=== PATIENT | female | born 1945 | race Caucasian/White ===

== ENCOUNTER 2022-09-02 22:29 | Inpatient (IN) | payer OTHER ==
[2022-09-02] MEDS ORDERED: HYDROmorphone HCL CARPU-JECT 1 MG/1 ML DISP.SYRIN IVPB ONE (23:06)
[2022-09-02] MEDS ORDERED: HYDROmorphone HCL/PF 1 MG/ML VIAL ONE (23:06)
[2022-09-02 23:10] LABS: HEMATOCRIT 35.5 % (32.4-45.2); HEMOGLOBIN 12.7 G/dL (10.7-15.3); MCH 34.6 pg (25.7-33.7); MCHC 35.8 g/dl (32.0-36.0); MEAN CELL VOLUME 96.6 fl (80-96); MEAN PLT VOLUME 6.6 fl (7.5-11.1); PLATELET COUNT 288.8 10^3/uL (134-434); RBC 3.68 10^6/uL (3.60-5.2); RDW 12.3 % (11.6-15.6); WHITE BLOOD COUNT 7.3 10^3/uL (4.0-10.8)
[2022-09-02] MEDS ORDERED: HYDROmorphone HCL CARPU-JECT 1 MG/1 ML DISP.SYRIN IVPUSH ONE (23:20)
[2022-09-02 23:22] LABS: INR 1.06 (0.83-1.09); PROTHROMBIN TIME (PATIENT) 12.2 SEC (9.7-13.0)
[2022-09-02 23:28] LABS: ALBUMIN 4.4 g/dl (3.4-5.0); BILIRUBIN,TOTAL 0.5 mg/dl (0.2-1); CALCIUM 9.8 mg/dl (8.5-10); CREATININE 0.7 mg/dl (0.55-1.3); TOT PROT 7.2 g/dl (6.4-8.2)
[2022-09-02] MEDS ORDERED: POTASSIUM CHLORIDE TABS 20 MEQ TABLET.ER (FP) PO ONE ×2 (23:30→23:33)
[2022-09-02 23:33] LABS: PLATELET ESTIMATE ADEQUATE
[2022-09-03] MEDS ORDERED: SODIUM CHLORIDE 500 ML IV STA (02:01)
[2022-09-03] MEDS ORDERED: ACETAMINOPHEN 1000 MG/100 ML BAG IVPB ONE (02:01)
[2022-09-03 02:36] VITALS: BMI 22.4
[2022-09-03] MEDS: ACETAMINOPHEN 1000 MG/100 ML BAG IVPB PRN ×2 (06:33→17:33)
[2022-09-03 07:59] LABS: CALCIUM 8.7 mg/dl (8.5-10); CREATININE 0.6 mg/dl (0.55-1.3)
[2022-09-03] MEDS: SODIUM CHLORIDE 1,000 ML IV SCH (09:18)
[2022-09-03 09:20] LABS: MAGNESIUM 1.8 mg/dL (1.8-2.4)
[2022-09-03 10:06] LABS: HEMATOCRIT 28.4 % (32.4-45.2); HEMOGLOBIN 9.8 GM/dL (10.7-15.3); MCH 33.3 pg (25.7-33.7); MCHC 34.5 g/dl (32.0-36.0); MEAN CELL VOLUME 96.7 fl (80-96); PLATELET COUNT 256 10^3/uL (134-434); RBC 2.94 M/mm3 (3.60-5.2); RDW 12.2 % (11.6-15.6); WHITE BLOOD COUNT 8.6 K/mm3 (4.0-10.0)
[2022-09-03] MEDS ORDERED: ENOXAPARIN NA (PORCINE) 40 MG/0.4 ML DISP.SYRIN SQ ONE (11:56)
[2022-09-04] MEDS: ACETAMINOPHEN 1000 MG/100 ML BAG IVPB PRN ×3 (00:34→17:32)
[2022-09-04 08:40] LABS: CALCIUM 8.8 mg/dl (8.5-10); CREATININE 0.6 mg/dl (0.55-1.3)
[2022-09-04] MEDS ORDERED: ACETAMINOPHEN 325 MG TABLET (FP) PO PRN (08:49)
[2022-09-04 09:54] LABS: MCH 33.6 pg (25.7-33.7); MCHC 34.6 g/dl (32.0-36.0); MEAN CELL VOLUME 97.3 fl (80-96); MEAN PLT VOLUME 7.4 fl (7.5-11.1); PLATELET COUNT 240.7 10^3/uL (134-434); RBC 2.98 10^6/uL (3.60-5.2); RDW 13.1 % (11.6-15.6); WHITE BLOOD COUNT 6.6 10^3/uL (4.0-10.8)
[2022-09-05] MEDS: SODIUM CHLORIDE 1,000 ML IV SCH ×2 (00:41→09:30)
[2022-09-05 09:06] LABS: ALBUMIN 3.4 g/dl (3.4-5.0); BILIRUBIN,TOTAL 0.8 mg/dl (0.2-1); CREATININE 0.5 mg/dl (0.55-1.3); TOT PROT 5.7 g/dl (6.4-8.2)
[2022-09-05 09:32] LABS: BASO % 0.5 % (0-2.0); EOS % 3.2 % (0-4.5); HEMATOCRIT 28.7 % (32.4-45.2); LYMPH % 16.6 % (8-40); MCH 33.6 pg (25.7-33.7); MEAN CELL VOLUME 96.1 fl (80-96); MONO % 12.7 % (3.8-10.2); PLATELET COUNT 258 10^3/uL (134-434); RBC 2.98 M/mm3 (3.60-5.2); RDW 12.2 % (11.6-15.6); WHITE BLOOD COUNT 8.2 K/mm3 (4.0-10.0)
[2022-09-06 00:01] VITALS: BP 133/65; PULSE 102; RESP 18; TEMP 98.5
== END 2022-09-06 02:25 | disposition short-term general hospital (02) | DRG 536 ==
LOC: FER 22:29 → FM/S 09-03 01:09 → OBSVTOIN 09-03 15:05
PROVIDERS: ADMIT Internal Medicine
DX: S72.001A Fracture of unspecified part of neck of right femur, initial encounter for closed fracture (principal); E87.1 Hypo-osmolality and hyponatremia; D64.9 Anemia, unspecified; M81.0 Age-related osteoporosis without current pathological fracture; E87.6 Hypokalemia; W19.XXXA Unspecified fall, initial encounter; Y93.9 Activity, unspecified; Y92.89 Other specified places as the place of occurrence of the external cause; Y99.9 Unspecified external cause status
CPT/HCPCS: 36415; 71045-TC-FY; 73502-TC-RT-FY; 80048; 80053; 81003; 81015; 82607; 82746; 83540; 83550; 83735; 83930; 83935; 84300; 84443; 85025; 85027; 85610; 86850; 86900; 86901; 93005; 99285-25; C9803-CS; G0378; U0003; U0005